=== PATIENT | female | born 1955 | race Two or more races ===

== ENCOUNTER 2017-09-16 20:53 | Emergency (ER) | payer BC ==
[~2017-09-16] VITALS: Ht 162.6 cm; Wt 68.0 kg
[2017-09-16 21:15] VITALS: BP 144/81
[2017-09-16 21:46] LABS: Urine Bacteria FEW /hpf (None Seen); Urine Blood 3+ /uL (Negative); Urine Specific Gravity 1.008 (1.001-1.035); Urine WBC 264 /hpf (0 - 5); Urine WBC Clumps PRESENT /hpf (None Seen)
[2017-09-16 21:53] LABS: Basophils # (auto) 0.1 uL; Basophils % (auto) 0.9 % (0.0-2.0); Eosinophils # (auto) 0.1 uL; Eosinophils % (auto) 0.8 % (0.0-7.0); Hematocrit 42.2 % (36.0-46.0); Hemoglobin 14.3 g/dL (12.2-16.2); Lymphocytes % (auto) 26.1 % (10.0-50.0); Mean Corpuscular Hemoglobin 31.1 pg (28.0-32.0); Mean Corpuscular Hgb Conc. 33.8 g/dL (32.0-36.0); Mean Corpuscular Volume 92.1 fL (80.0-100.0); Monocytes # (auto) 0.9 uL; Monocytes % (auto) 7.8 % (0.0-12.0); Neutrophils # (auto) 7.3 uL; Neutrophils % (auto) 64.4 % (37.0-80.0); Platelet Count (auto) 234 10^3/uL (140-450); Red Blood Cells 4.59 10^6/uL (4.0-5.20); White Blood Cell 11.4 10^3/uL (4.4-10.8)
[2017-09-17] MEDS ORDERED: cefTRIAXone SOD 1,000 MG VL IM ONE (06:00)
[2017-09-17] MEDS ORDERED: cefTRIAXone SOD 1,000 MG VL ONE (06:10)
== END 2017-09-17 06:21 | disposition home or self-care (01) ==
LOC: ER 20:53
DX: N39.0 Urinary tract infection, site not specified (principal); E78.5 Hyperlipidemia, unspecified
CPT/HCPCS: 36415; 74176; 81001; 85025; 96372; 99285; J0696